=== PATIENT | male | born 1945 | race Caucasian/White ===

== ENCOUNTER → 2020-03-11 | Outpatient (CLI) | payer MEDICARE, OTHER ==
--- NOTE | 2020-03-11 11:06 | Diagnostic Imaging Report ---
CLINICAL INDICATION: Patient with pain. No known injury. EXAM: X-ray of the cervical spine, 3 views. COMPARISON: None. FINDINGS: There is no acute cervical spine fracture or dislocation. There are hypertrophic spurs involving the cervical spine and facet arthropathy. There is moderate to severe loss of disc space height at the C5-C6 level. There is no significant prevertebral soft tissue swelling. There are calcifications involving the right and left sides of the neck which may be related to carotid artery atherosclerotic disease. Odontoid view show no significant abnormality. 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 2: Suspected carotid artery atherosclerotic disease. Ultrasound of the carotid artery would better evaluate. Dictated by: Dictated on workstation # [id number]
--- NOTE | 2020-03-11 11:12 | Diagnostic Imaging Report ---
INDICATION: Bilateral shoulder pain. Time of exam 10:21 a.m. Two views of each shoulder were obtained. Glenohumeral and acromioclavicular alignment are normal. Acromiohumeral space on the right is normal. There is some narrowing of the acromiohumeral space on the left with superior migration of the humeral head. This is likely owing to chronic rotator cuff arthropathy. No fractures are seen. There is no dislocation. IMPRESSION: Chronic changes on the left. No acute bony abnormality is detected. Dictated by: Dictated on workstation # [id number]
== END ==
LOC: RAD FS 10:10
PROVIDERS: ATTEND Nurse Practitioner Family
DX: M47.812 Spondylosis without myelopathy or radiculopathy, cervical region (principal); M25.512 Pain in left shoulder; M25.511 Pain in right shoulder
CPT/HCPCS: 72040

== ENCOUNTER → 2020-05-19 | Outpatient (CLI) | payer MEDICARE, OTHER ==
[2020-05-19 15:27] LABS: HEMATOCRIT 47 % (40-54); HEMOGLOBIN 15.8 G/DL (13.3-17.7); MEAN CORPUSCULAR HEMOGLOBIN 31 PG (25-34); MEAN CORPUSCULAR HGB CONC 34 G/DL (32-36); MEAN CORPUSCULAR VOLUME 91 FL (80-99); WHITE BLOOD COUNT 6.4 10^3/uL (4.3-11.0)
[2020-05-19 15:28] LABS: BASOPHILS # (AUTO) 0.1 10^3/uL (0.0-0.1); BASOPHILS % (AUTO) 1 % (0-10); EOSINOPHILS # (AUTO) 0.1 10^3/uL (0.0-0.3); EOSINOPHILS % (AUTO) 2 % (0-10); LYMPHOCYTES # (AUTO) 1.3 X 10^3 (1.0-4.0); LYMPHOCYTES % (AUTO) 20 % (12-44); MONOCYTES # (AUTO) 0.7 X 10^3 (0.0-1.0); MONOCYTES % (AUTO) 11 % (0-12); NEUTROPHILS # (AUTO) 4.1 X 10^3 (1.8-7.8); NEUTROPHILS % (AUTO) 64 % (42-75); PLATELET COUNT 235 10^3/uL (130-400)
[2020-05-19 15:34] LABS: BAND NEUTROPHILS 4 %; LYMPHOCYTES % (MANUAL) 14 %; NEUTROPHILS % (MANUAL) 60 %
[2020-05-19 15:35] LABS: ATYPICAL LYMPHOCYTES 10 %; BASOPHILS % (MANUAL) 0 %; EOSINOPHILS % (MANUAL) 2 %; MONOCYTES % (MANUAL) 10 %; RBC MORPH NORMAL
[2020-05-19 15:43] LABS: CARBON DIOXIDE 27 MMOL/L (21-32); CHLORIDE 100 MMOL/L (98-107); POTASSIUM 4.8 MMOL/L (3.6-5.0); SODIUM 137 MMOL/L (135-145)
[2020-05-19 15:44] LABS: ALANINE AMINOTRANSFERASE 37 U/L (0-55); ALBUMIN 3.7 GM/DL (3.2-4.5); ALKALINE PHOSPHATASE 99 U/L (40-136); BILIRUBIN,TOTAL 0.6 MG/DL (0.1-1.0); BUN/CREATININE RATIO 12; CALCIUM 9.4 MG/DL (8.5-10.1); CREATININE SERUM 1.08 MG/DL (0.60-1.30); GFR ESTIMATED > 60; GLUCOSE 94 MG/DL (70-105); TOTAL PROTEIN 6.8 GM/DL (6.4-8.2)
--- NOTE | 2020-05-19 16:00 | Diagnostic Imaging Report ---
INDICATION: HX of COVID,fatigue. COMPARISON: None FINDINGS: Frontal and lateral views of the chest demonstrate normal heart size and pulmonary vascularity. Lungs show blunting of the bilateral posterior costophrenic angles, but are otherwise clear. There are no signs of infiltrate, pleural effusions or pneumothoraces. The visualized osseous structures show no acute abnormalities. IMPRESSION: 1. Probable small bibasilar effusions. Dictated by: Dictated on workstation # [id number]
== END ==
LOC: LAB FS 14:51
PROVIDERS: ATTEND Nurse Practitioner Family
DX: G93.3 Postviral and related fatigue syndromes (principal); Z86.16 Personal history of COVID-19
CPT/HCPCS: 36415; 71046; 80053; 85007; 85027

== ENCOUNTER → 2021-02-22 | Outpatient (CLI) | payer MEDICARE, OTHER ==
--- NOTE | 2021-02-22 15:52 | Diagnostic Imaging Report ---
INDICATION: Cough. COMPARISON: 05/19/2020. FINDINGS: Frontal and lateral radiographic views of the chest were obtained and show normal cardiac silhouette and pulmonary vasculature. Lungs show minimal scarring and/or atelectasis within the left base but are otherwise clear. There is no large effusion or pneumothorax. Osseous structures show no gross acute abnormalities. IMPRESSION: Minimal left basilar scarring and/or atelectasis; otherwise, no acute cardiopulmonary process. Dictated by: Dictated on workstation # [id number]
== END ==
LOC: RAD FS 14:54
PROVIDERS: ATTEND Nurse Practitioner Family
DX: J18.9 Pneumonia, unspecified organism (principal)
CPT/HCPCS: 71046